=== PATIENT | female | born 1995 | race Caucasian/White ===

== ENCOUNTER 2018-03-21 23:58 | Emergency (ER) | payer OTHER ==
[~2018-03-21] VITALS: Ht 170.2 cm; Wt 70.3 kg
--- OUTSIDE RECORDS SUMMARY | 2018-03-22 00:02 | XMS REPORT ---
Author Author Anisa Heller [facility] Address [address] [place] [address] Care Team Providers Care Tower Helper Name Role Phone Anisa Heller Unavailable PROBLEMS Unknown Problems ALLERGIES Unknown Allergies SOCIAL HISTORY No smoking Hx information available PLAN OF CARE VITAL SIGNS MEDICATIONS Medication Instructions Dosage Frequency Start Date End Date Duration Status Ortho Tri-Cyclen (28) 0.18/0.215/0.25 MG-35 MCG Orally Once a day 1 tablet 24h 1 month Active RESULTS No Results PROCEDURES No Known procedures IMMUNIZATIONS No Known Immunizations
--- OUTSIDE RECORDS SUMMARY | 2018-03-22 00:02 | XMS REPORT ---
Author Author Anisa Heller Organization [facility] Address [address] [place] [address] Care Team Providers Care Track Repair Worker Name Role Phone Anisa Heller Unavailable PROBLEMS Unknown Problems ALLERGIES No Known Allergies ENCOUNTERS Encounter Location Date Diagnosis [address] [id number] October, Well woman exam Z01.419 and Encounter for surveillance of contraceptive pills Z30.[address] [id number] Jan, [address] [id number] October, Well woman exam Z01.419 [place] [address] [place], [place] [id number] Mar, [address] [id number] October, Well woman exam Z01.419 ; Encounter for screening for other infectious and parasitic diseases Z11.8 ; Encounter for screening for infections with predominantly sexual mode of transmission Z11.3 and Encounter for screening for malignant neoplasm of cervix Z12.[address] [id number] Sep, IMMUNIZATIONS No Known Immunizations SOCIAL HISTORY Never Assessed REASON FOR VISIT WWE, pt states no concerns at this time., Verified by Sal Gonzalez LPN, Rm 7 PLAN OF CARE Activity Details Follow Up 1 Year Reason:null VITAL SIGNS Weight 152 lbs 2017-11-11 Height 67.5 in 2017-11-11 BMI 23.45 kg/m2 2017-11-11 Blood pressure systolic 100 mm Hg 2017-11-11 Blood pressure diastolic 60 mm Hg 2017-11-11 MEDICATIONS Medication Instructions Dosage Frequency Start Date End Date Duration Status Ortho Tri-Cyclen (28) 0.18/0.215/0.25 MG-35 MCG Orally Once a day 1 tablet 24h 1 month Active RESULTS No Results PROCEDURES No Known procedures INSTRUCTIONS MEDICATIONS ADMINISTERED No Known Medications MEDICAL (GENERAL) HISTORY Type Description Date Surgical History wisdom teeth extract 2011 Surgical History sinus surgery 1996
--- OUTSIDE RECORDS SUMMARY | 2018-03-22 00:02 | XMS REPORT ---
Author Author Luke Mina Organization [facility] Address [address] [place] [address] Care Team Providers Care Regional Marketing Manager Name Role Phone Luke Mina Unavailable PROBLEMS Unknown Problems ALLERGIES No Information ENCOUNTERS Encounter Location Date Diagnosis [address] [id number] Nov, [address] [id number] October, Well woman exam Z01.419 and Encounter for surveillance of contraceptive pills Z30.[address] [id number] Jan, [address] [id number] October, Well woman exam Z01.[address] [id number] Mar, [address] [id number] October, Well woman exam Z01.419 ; Encounter for screening for other infectious and parasitic diseases Z11.8 ; Encounter for screening for infections with predominantly sexual mode of transmission Z11.3 and Encounter for screening for malignant neoplasm of cervix Z12.[address] [id number] Sep, IMMUNIZATIONS No Known Immunizations SOCIAL HISTORY Never Assessed REASON FOR VISIT questions PLAN OF CARE VITAL SIGNS MEDICATIONS Unknown Medications RESULTS No Results PROCEDURES No Known procedures INSTRUCTIONS MEDICATIONS ADMINISTERED No Known Medications MEDICAL (GENERAL) HISTORY Type Description Date Surgical History wisdom teeth extract 2011 Surgical History sinus surgery 1996
--- OUTSIDE RECORDS SUMMARY | 2018-03-22 00:02 | XMS REPORT ---
Author Amanda Mitchell Organization [employer] Address Unknown Phone Unavailable Care Team Providers Care Director Business Name Role Phone Amanda Foster CP Unavailable Allergies No Known Allergies Problems No Known Problems Medications Medication Code System Code Instructions Start Date End Date Status Dosage Ortho Tri-Cyclen (70) [facility] [id number] 0.18/0.215/0.25 MG-35 MCG Orally Once a day 1 tablet Results No Known Results Summary Purpose [employer] Submission
--- OUTSIDE RECORDS SUMMARY | 2018-03-22 00:03 | XMS REPORT ---
Author Author Anisa Heller Organization [facility] Address [address] [place] [address] Care Team Providers Care Clinical Applications Manager Name Role Phone Anisa Heller Unavailable PROBLEMS Unknown Problems ALLERGIES Substance Reaction Event Type Date Status N.K.D.A. Unknown Non Drug Allergy October, Unknown SOCIAL HISTORY No smoking Hx information available PLAN OF CARE Activity Details Follow Up 1 Year Reason:null VITAL SIGNS Weight 148 lbs 2016-11-08 Height 67.5 in 2016-11-08 BMI 22.84 kg/m2 2016-11-08 Blood pressure systolic 130 mm Hg 2016-11-08 Blood pressure diastolic 60 mm Hg 2016-11-08 MEDICATIONS Medication Instructions Dosage Frequency Start Date End Date Duration Status Ortho Tri-Cyclen (28) 0.18/0.215/0.25 MG-35 MCG Orally Once a day 1 tablet 24h 1 month Active RESULTS No Results PROCEDURES Procedure Date Ordered Related Diagnosis Body Site Preventive medicine est pt 18 to 39 November 08, 2016 IMMUNIZATIONS No Known Immunizations
[2018-03-22] MEDS ORDERED: LACTATED RINGERS 1,000 ML IV ONE (00:34)
[2018-03-22] MEDS ORDERED: KETOROLAC 30 MG/ML VIAL IVP STA (00:34)
[2018-03-22] MEDS ORDERED: ONDANSETRON 4 MG (ZOFRAN) ORAL DISSOLVE TAB ONE (00:36)
[2018-03-22] MEDS ORDERED: fentaNYL INJECTION 100 MCG/2 ML AMP IVP STA (01:42)
[2018-03-22] MEDS ORDERED: DIAZEPAM INJ 10 MG/2 ML (VALIUM) SYR IV ONE (01:45)
[2018-03-22] MEDS ORDERED: RX-NAPROXEN (NAPROSYN) 250 MG TAB PPK#4 PO STA (02:44)
[2018-03-22] MEDS ORDERED: RX-HYDROCODONE/APAP 5/325 MG #4 TAB PK PO PRN (02:45)
[2018-03-22] MEDS ORDERED: NAPR-915 PO (02:50)
[2018-03-22] MEDS ORDERED: ACHD5005 PO (02:50)
--- NOTE | 2018-03-22 02:50 | ED Lower Extremity ---
General Stated Complaint: LEFT KNEE PAIN,DISLOCATED Allergies and Home Medications Allergies Coded Allergies: No Known Drug Allergies (Unverified , 03/22/18) Past Rwxhvpq-Tphqqx-Kizphm Hx Patient Social History Recent Foreign Travel: No Contact w/Someone Who Travel: No Physical Exam Vital Signs Capillary Refill : Height, Weight, BMI Height: '" Weight: lbs. oz. kg; BMI Method: Progress/Results/Core Measures Results/Orders My Orders Orders - RAQUEL MOREJON DO Saline Lock/Iv-Start (03/22/18 00:34) Saline Lock/Iv-Start (03/22/18 00:34) Lactated Ringers (Lr 1000 Ml Iv Solution (03/22/18 00:34) Ketorolac Injection (Toradol Injection) (03/22/18 00:34) Hcg,Qualitative Serum (03/22/18 00:36) Ondansetron Oral Dissolve Tab (Zofran (03/22/18 00:36) Diazepam Injection (Valium Injection) (03/22/18 01:45) Fentanyl Injection (Sublimaze Injection (03/22/18 01:42) Knee, Left, 2 Views (Ap & Lat) (03/22/18 ) Knee, Left, 2 Views (Ap & Lat) (03/22/18 ) Isaias Bandage (03/22/18 02:44) Crutches (03/22/18 02:44) Knee Immobilizer (03/22/18 02:44) Rx-Hydrocodone/Apap 5-325 Mg (Rx-Vicodin (03/22/18 02:45) Rx-Naproxen (Rx-Naprosyn) (03/22/18 02:44) Medications Given in ED Current Medications Medications Dose Ordered Sig/Sherman Route Start Time Stop Time Status Last Admin Dose Admin Diazepam 5 mg ONCE ONCE IV 03/22/18 01:45 03/22/18 01:46 DC 03/22/18 02:35 5 MG Lactated Ringer's 1,000 ml @ 0 mls/hr Q0M ONCE IV 03/22/18 00:34 03/22/18 00:36 DC 03/22/18 00:48 1,000 MLS/HR Ondansetron HCl 4 mg STK-MED ONCE .ROUTE 03/22/18 00:36 03/22/18 00:41 DC 03/22/18 00:47 4 MG Departure Impression Primary Impression: Dislocation of left patella Disposition: HOME, SELF-CARE Condition: Improved Departure-Patient Inst. Referrals: UNKNOWN (PCP) Primary Care Physician ELENA WEAVER DO Patient Instructions: DISLOCATED-JOINT Add. Discharge Instructions: ISAIAS WRAP, KNEE IMMOBILIZER AND CRUTCHES AT ALL TIMES ICE TO AREA AT 20 MINUTE INTERVALS ELEVATE LEG MUCH POSSIBLE FOLLOW UP WITH DR. WEAVER OR ORTHOPEDIC SURGEON OF CHOICE NEXT WEEK FOR FURTHER CARE Scripts Hydrocodone Bit/Acetaminophen (Hydrocodone/Acetaminophen 5/325mg Tablet) 1 Tab Tab 1 EACH PO Q4H PRN for PAIN-MODERATE MDD 10, #20 TAB Prov: RAQUEL MOREJON DO 03/22/18 Naproxen (Naproxen) 500 Mg Tablet 500 MG PO BID, #20 TAB Prov: RAQUEL MOREJON DO 03/22/18 RAQUEL MOREJON DO Mar 22, 2018 02:50
[2018-03-22 03:28] VITALS: BP 116/67
--- NOTE | 2018-03-22 07:20 | Diagnostic Imaging Report ---
EXAMINATION: Left knee, 2 views. COMPARISON: None. INDICATION: 22-year-old female, left knee pain. FINDINGS: The patella is laterally dislocated. There is no large knee joint effusion. There is no radiographically appreciated fracture. The joint spaces appear well preserved. There is no radiopaque foreign body. IMPRESSION: 1. The patella is currently laterally dislocated. 2. No identified knee joint effusion. 3. No radiographically apparent fracture. Dictated by: Dictated on workstation # [id number]
--- NOTE | 2018-03-22 07:21 | Diagnostic Imaging Report ---
EXAMINATION: Left knee, 2 views. COMPARISON: March 22, 2018 at 0111 hrs. INDICATION: 22-year-old female, postreduction of patellar dislocation. FINDINGS: The patella is not currently dislocated. There is no left knee joint effusion. There is no radiographically apparent fracture. IMPRESSION: 1. The patella is not currently dislocated. 2. No radiographically apparent fracture. 3. No knee joint effusion. Dictated by: Dictated on workstation # [id number]
== END 2018-03-22 03:28 | disposition home or self-care (01) ==
LOC: ER 23:59
DX: S83.005A Unspecified dislocation of left patella, initial encounter (principal); X58.XXXA Exposure to other specified factors, initial encounter
CPT/HCPCS: 27560; 29505; 73560

== ENCOUNTER 2018-07-31 14:16 | Outpatient (RCR) | payer OTHER ==
[~2018-07-31 14:16] MED LIST: ACHD5005 PO; NAPR-915 PO
== END 2018-07-31 14:48 | disposition home or self-care (01) ==
PROVIDERS: ATTEND Orthopaedic Surgery
DX: S83.005A Unspecified dislocation of left patella, initial encounter (principal); X58.XXXA Exposure to other specified factors, initial encounter